=== PATIENT | male | born 1965 | race Caucasian/White ===

== ENCOUNTER 2020-11-17 20:57 | Emergency (ER) | payer OTHER ==
[2020-11-17] MEDS ORDERED: traMADol HCl 50 MG TAB ONE (21:25)
--- NOTE | 2020-11-17 21:52 | RAD ---
LEFT SHOULDER THREE VIEWS: 11/17/20 HISTORY: Shoulder pain after fall. There are no signs of fracture or dislocation. IMPRESSION: Negative left shoulder. POS: OFF
--- NOTE | 2020-11-17 21:53 | CT ---
CT OF BRAIN PERFORMED WITHOUT CONTRAST ENHANCEMENT: 11/17/20 HISTORY: Fall With head injury. The ventricular and cisternal system is within normal limits. There are no signs of intracerebral hem orrhage or extra-axial fluid collections. The mastoid air cells are clear. The left maxillary sinus s hows extensive mucosal change which appears chronic. IMPRESSION: No acute intracranial abnormalities. POS: OFF
[2020-11-17] MEDS ORDERED: Naproxen 500 MG TAB ONE (22:01)
== END 2020-11-17 22:16 | disposition home or self-care (01) ==
LOC: NAV ERS 20:57
DX: S43.402A Unspecified sprain of left shoulder joint, initial encounter (principal); F17.210 Nicotine dependence, cigarettes, uncomplicated; Z79.51 Long term (current) use of inhaled steroids; W01.0XXA Fall on same level from slipping, tripping and stumbling without subsequent striking against object, initial encounter
CPT/HCPCS: 70450